=== PATIENT | male | born 1985 | race Caucasian/White ===

== ENCOUNTER 2020-11-22 19:58 | Emergency (ER) | payer MEDICAID, OTHER ==
[~2020-11-22] VITALS: Ht 188 cm; Wt 104.5 kg
[~2020-11-22 19:58] MED LIST: IBUP-1984 PO
[2020-11-22 20:19] VITALS: BP 134/109
[2020-11-23] MEDS ORDERED: CLOZ200T PO (16:03)
[2020-11-23] MEDS ORDERED: FLUP5TAB4 PO (16:03)
[2020-11-23] MEDS ORDERED: MELA5TAB12 PO (16:03)
[2020-11-23] MEDS ORDERED: CLOZ100T31 PO (16:03)
== END 2020-11-22 22:29 | disposition home or self-care (01) ==
LOC: ER 19:59
DX: Z13.89 Encounter for screening for other disorder (principal); F41.9 Anxiety disorder, unspecified; F32.9 Major depressive disorder, single episode, unspecified; Z72.89 Other problems related to lifestyle; Z79.899 Other long term (current) drug therapy
CPT/HCPCS: 99281